=== PATIENT | male | born 1970 | race African-American/Black ===

== ENCOUNTER 2017-08-18 17:56 | Observation (INO) | payer BC, OTHER ==
[~2017-08-18] VITALS: Ht 198.1 cm; Wt 127.7 kg
[2017-08-18 20:22] LABS: BASO % 0.2 %; BASO ABS # 0.02 K/uL (0-0.2); EOS ABS # 0.17 K/uL (0-0.5); HEMATOCRIT 42.6 % (42-52); HEMOGLOBIN 14.7 g/dL (14.0-18.0); IG# 0.01 K/uL (0.00-0.02); LYMPH % 26.3 %; LYMPH ABS # 2.19 K/uL (1.2-3.4); MEAN CORPUSCULAR HEMOGLOBIN 30.4 pg (25-34); MEAN CORPUSCULAR HGB CONC 34.5 g/dl (32-36); MEAN PLATELET VOLUME 10.3 fL (7.4-10.4); MONO % 7.1 %; MONO ABS # 0.59 K/uL (0.11-0.59); NEUT % 64.3 %; NEUT ABS # 5.36 K/uL (1.4-6.5); PLATELET COUNT 172 K/uL (130-400); RED CELL DISTRIBUTION WIDTH CV 13.8 % (11.5-14.5); RED CELL DISTRIBUTION WIDTH SD 41.9 fL (36.4-46.3); WHITE BLOOD COUNT 8.34 K/uL (4.8-10.8)
[2017-08-18 21:26] LABS: ISTAT CREATININE 1.2 mg/dl (0.6-1.3); ISTAT IONIZED CALCIUM 1.18 mmol/l (1.12-1.32); ISTAT POTASSIUM 4.2 mEq/L (3.3-5.0)
[2017-08-18] MEDS ORDERED: OPTIRAY 320 IV PRN (21:30)
[2017-08-18 21:59] LABS: ALBUMIN 3.4 gm/dl (3.4-5.0); CALCIUM 8.8 mg/dl (8.5-10.1); CREATININE 0.98 mg/dl (0.60-1.40); POTASSIUM 4.1 mmol/L (3.5-5.1)
[2017-08-18 22:02] LABS: TOTAL PROTEIN 7.7 gm/dl (6.4-8.2)
--- NOTE | 2017-08-18 22:02 | DIAGNOSTIC IMAGING REPORT ---
CT OF THE ABDOMEN AND PELVIS WITH CONTRAST CLINICAL HISTORY: Right lower quadrant abdominal pain. COMPARISON STUDY: None. TECHNIQUE: Following IV administration of 116 mL of Optiray-320, axial images of the abdomen and pelvis were obtained from the lung bases to the proximal femurs. Images were reviewed in the axial, sagittal, and coronal planes. IV contrast was administered without complication. A dose lowering technique was utilized adhering to the principles of ALARA. CT DOSE: 832.27 mGy.cm FINDINGS: The liver, spleen, adrenal glands, left kidney and pancreas are normal. An 8 mm right renal lesion is too small to characterize but may contain fat and likely reflects a tiny angiomyolipoma. This is likely benign. There is no hydronephrosis. There is no biliary or pancreatic ductal dilatation. No abdominal or pelvic lymphadenopathy is present. The appendix is dilated, measuring 1.3 cm in caliber. There is submucosal fat deposition within the appendix as well as multiple small and large bowel loops which suggests chronic inflammation. There is mild periappendiceal infiltration. There is no free air or abscess. The appendix extends inferiorly from the base of the cecum. No suspicious skeletal lesions are identified. A small fat-containing umbilical hernia is present. IMPRESSION: Findings consistent with acute appendicitis. No free air or abscess. Submucosal fat deposition within the appendix suggests chronic inflammation however mild periappendiceal infiltration is indicative of acute appendicitis. Electronically signed by: Jose Tse M.D. 08/18/2017 10:01 PM Dictated Date/Time: 08/18/2017 9:54 PM
[2017-08-18] MEDS ORDERED: CEFOXITIN 2000MG/60 ML D5W IV STA (22:08)
--- NOTE | 2017-08-18 22:15 | EMERGENCY ROOM VISIT NOTE ---
History First contact with patient: 19:13 Chief Complaint: ABDOMINAL PAIN Stated Complaint: STOMACH PAIN Nursing Triage Summary: pt reports RLQ abdominal pain X 3 days to PCP today sent in for eval and CT pt denies NVD History of Present Illness Patient is a healthy 46-year-old male who presents to emergency department from his primary care doctor's office for evaluation of right lower quadrant abdominal pain 3 days. Patient reports that he had a "food poisoning illness "about a week and half ago. He reports roughly 24 hours of nausea, vomiting and diarrhea, which self resolved. He reports that he was beginning to feel back to his baseline, when he developed right lower quadrant pain about 3 days ago. He states the pain is constant, deep and aching, and rates his discomfort a 5/10. He denies any radiation of the pain. He tried taking Pepto-Bismol last evening for discomfort. He notes increased pain last evening, then states the pain tapered off, then returned today and was worse. He was seen by his primary care provider and referred to the emergency department for possible appendicitis. He has been eating normally, denies nausea, vomiting or diarrhea. No fever or chills. No urinary symptoms. He denies melena, hematochezia or hematemesis. Review of Systems Review of systems as per HPI. All other systems reviewed were negative. 10 systems reviewed. Past Medical/Surgical History Medical Problems: (1) Asthma Surgical Problems: (1) History of vasectomy Electronic medical records are reviewed and summarized as above/below. See Problem List. Social History Smoking Status: Never Smoker Marital Status: Housing Status: lives with family Occupation Status: employed Current/Historical Medications Miscellaneous Medications None (Patient States No Home Meds) Physical Exam Vital Signs Date Time Temp Pulse Resp B/P (MAP) Pulse Ox O2 Delivery O2 Flow Rate FiO2 08/18/17 21:16 67 18 126/85 96 Room Air 08/18/17 18:05 36.6 67 20 129/81 98 Room Air Physical Exam CONSTITUTIONAL: Patient is a pleasant, with ill-appearing 46-year-old - [place] male who is awake and alert and in no acute distress. He is a notoriously exam room without discomfort. EYES: Pupils equal, round, reactive to light and accommodation. EOMs intact without nystagmus. Sclera are anicteric. ENT: Tympanic membranes intact, with normal landmarks. External canals are clear. Oral and nasopharynx are clear. Mucous membranes are moist, no lesions , tongue and gums appear normal. CARDIOVASCULAR: Regular rate and rhythm, with normal S1 and S2, no murmur or gallop or rub is heard. No carotid bruits auscultated. No JVD. Peripheral pulses easily palpable. RESPIRATORY: Breath sounds equal and clear to auscultation without wheezes, rales, or rhonchi heard. Full and equal chest expansion without accessory muscle use or retractions. ABDOMEN: Bowel sounds are present. Abdomen is soft, nondistended, mildly tender to percussion in the suprapubic and right lower quadrants, markedly tender to deep palpation in the right lower quadrant with guarding. No rebound or referred rebound tenderness. No CVA tenderness. INTEGUMENTARY: No lesions or rash, normal skin turgor. LYMPH: No lymphadenopathy. Medical Decision & Procedures ER Provider Diagnostic Interpretation: CT OF THE ABDOMEN AND PELVIS WITH CONTRAST CLINICAL HISTORY: Right lower quadrant abdominal pain. COMPARISON STUDY: None. TECHNIQUE: Following IV administration of 116 mL of Optiray-320, axial images of the abdomen and pelvis were obtained from the lung bases to the proximal femurs. Images were reviewed in the axial, sagittal, and coronal planes. IV contrast was administered without complication. A dose lowering technique was utilized adhering to the principles of ALARA. CT DOSE: 832.27 mGy.cm FINDINGS: The liver, spleen, adrenal glands, left kidney and pancreas are normal. An 8 mm right renal lesion is too small to characterize but may contain fat and likely reflects a tiny angiomyolipoma. This is likely benign. There is no hydronephrosis. There is no biliary or pancreatic ductal dilatation. No abdominal or pelvic lymphadenopathy is present. The appendix is dilated, measuring 1.3 cm in caliber. There is submucosal fat deposition within the appendix as well as multiple small and large bowel loops which suggests chronic inflammation. There is mild periappendiceal infiltration. There is no free air or abscess. The appendix extends inferiorly from the base of the cecum. No suspicious skeletal lesions are identified. A small fat-containing umbilical hernia is present. IMPRESSION: Findings consistent with acute appendicitis. No free air or abscess. Submucosal fat deposition within the appendix suggests chronic inflammation however mild periappendiceal infiltration is indicative of acute appendicitis. Laboratory Results 08/18/17 20:00 Red Blood Count 4.84, Mean Corpuscular Volume 88.0, Mean Corpuscular Hemoglobin 30.4, Mean Corpuscular Hemoglobin Concent 34.5, Mean Platelet Volume 10.3, Neutrophils (%) (Auto) 64.3, Lymphocytes (%) (Auto) 26.3, Monocytes (%) (Auto) 7.1, Eosinophils (%) (Auto) 2.0, Basophils (%) (Auto) 0.2, Neutrophils # (Auto) 5.36, Lymphocytes # (Auto) 2.19, Monocytes # (Auto) 0.59, Eosinophils # (Auto) 0.17, Basophils # (Auto) 0.02 08/18/17 21:10 Test 08/18/17 20:00 08/18/17 20:05 08/18/17 21:10 08/18/17 21:13 White Blood Count 8.34 K/uL (4.8-10.8) Red Blood Count 4.84 M/uL (4.7-6.1) Hemoglobin 14.7 g/dL (14.0-18.0) Hematocrit 42.6 % (42-52) Mean Corpuscular Volume 88.0 fL (80-100) Mean Corpuscular Hemoglobin 30.4 pg (25-34) Mean Corpuscular Hemoglobin Concent 34.5 g/dl (32-36) Platelet Count 172 K/uL (130-400) Mean Platelet Volume 10.3 fL (7.4-10.4) Neutrophils (%) (Auto) 64.3 % Lymphocytes (%) (Auto) 26.3 % Monocytes (%) (Auto) 7.1 % Eosinophils (%) (Auto) 2.0 % Basophils (%) (Auto) 0.2 % Neutrophils # (Auto) 5.36 K/uL (1.4-6.5) Lymphocytes # (Auto) 2.19 K/uL (1.2-3.4) Monocytes # (Auto) 0.59 K/uL (0.11-0.59) Eosinophils # (Auto) 0.17 K/uL (0-0.5) Basophils # (Auto) 0.02 K/uL (0-0.2) RDW Standard Deviation 41.9 fL (36.4-46.3) RDW Coefficient of Variation 13.8 % (11.5-14.5) Immature Granulocyte % (Auto) 0.1 % Immature Granulocyte # (Auto) 0.01 K/uL (0.00-0.02) Urine Color YELLOW Urine Appearance CLEAR (CLEAR) Urine pH 5.0 (4.5-7.5) Urine Specific Wolverine 1.020 (1.000-1.030) Urine Protein NEG (NEG) Urine Glucose (UA) NEG (NEG) Urine Ketones NEG (NEG) Urine Occult Blood NEG (NEG) Urine Nitrite NEG (NEG) Urine Bilirubin NEG (NEG) Urine Urobilinogen NEG (NEG) Urine Leukocyte Esterase NEG (NEG) Est Creatinine Clear Calc Drug Dose 139.1 ml/min Estimated GFR () 105.2 Estimated GFR (Non- 90.8 BUN/Creatinine Ratio 9.7 (10-20) Calcium Level 8.8 mg/dl (8.5-10.1) Total Bilirubin 0.6 mg/dl (0.2-1) Aspartate Amino Transf (AST/SGOT) 22 U/L (15-37) Alanine Aminotransferase (ALT/SGPT) 36 U/L (12-78) Alkaline Phosphatase 70 U/L (45-117) Total Protein 7.7 gm/dl (6.4-8.2) Albumin 3.4 gm/dl (3.4-5.0) Globulin 4.3 gm/dl (2.5-4.0) Albumin/Globulin Ratio 0.8 (0.9-2) Bedside Hemoglobin 14.3 g/dl (14.0-18.0) Bedside Hematocrit 42 % (42-52) Bedside Sodium 141 mEq/L (135-144) Bedside Potassium 4.2 mEq/L (3.3-5.0) Bedside Chloride 99 mEq/L (101-112) Bedside Total CO2 28 mEq/l (24-31) Anion Gap 19.0 mmol/L (16-25) Bedside Blood Urea Nitrogen 8 mg/dl (7-18) Bedside Creatinine 1.2 mg/dl (0.6-1.3) Bedside Glucose (other) 97 mg/dl (70-99) Bedside Ionized Calcium (Layla) 1.18 mmol/l (1.12-1.32) ED Course The patient was seen and evaluated as above. Old records were reviewed. He was referred to the emergency department from his primary care doctor's office for CT scan as they were concerned regarding appendicitis given the right lower quadrant pain 3 days. IV lock was initiated. CBC with differential, CMP and urinalysis were collected. Patient was made NPO (last PO was [address] scan of the abdomen and pelvis with IV contrast was ordered. Laboratory studies noted a normal white count at 8300, no left shift or bandemia. Electrolytes are without abnormality. Renal function is normal. LFTs are not elevated. CT scan of the abdomen pelvis with IV contrast is consistent with acute appendicitis. There is no evidence for perforation or abscess. CT scan findings were reviewed with the patient. Consultation was placed with Dr. Zafar from general surgery. Patient was given Mefoxin 2 g IV in anticipation for surgery. Differential diagnoses include gastroenteritis, pancreatitis, cholelithiasis, cholecystitis, appendicitis, mesenteric adenitis, pyelonephritis, urinary tract infection, renal colic, diverticulitis, shingles, bowel obstruction, among others. Patient was reviewed with attending physician. Medical Decision See ED Course. Medication Reconcilliation Current Medication List: was personally reviewed by in Blood Pressure Screening Patient's blood pressure: Normal blood pressure Blood pressure disposition: Did not require urgent referral Impression Primary Impression: Appendicitis Departure Information Dispostion Being Evaluated By Surgeon Referrals No Doctor, Assigned (PCP) Patient Instructions [facility]
[2017-08-18] MEDS ORDERED: BISM262S7 PO (22:22)
[2017-08-18] MEDS ORDERED: JUICE PLUS PO (22:23)
--- NOTE | 2017-08-18 22:23 | EMERGENCY ROOM VISIT NOTE ---
ED Visit Note First contact with patient: 19:13 The patient was seen and examined with Mirian Red PA-C. I agree with the history, physical and findings. Please see the note for disposition and details. Patient has acute appendicitis. General surgery consulted for further management.
--- NOTE | 2017-08-18 22:48 | Medical Consult ---
Consultation Date of Consultation: Aug 18, 2017. Attending Physician: Reason for Consultation: Acute Appendicitis History of Present Illness Patient presented to the ED with a 2 day history of RLQ pain. States he started to really notice it last night, but tried to tough it out. Rates the pain as a 4 /10 and denies any other areas of pain. Denies associated nausea or vomiting. Denies recent illness. Patient has been moving his bowels and urinating without trouble. PSHx significant for vasectomy. Denies other past surgeries. Reports no history of cardiac or pulmonary problems. Denies use of blood thinning or anticoagulant medications. States he last ate today at lunch today without nausea. Patient works as a school principle in town. Past Medical/Surgical History Medical Problems: (1) Appendicitis Status: Acute (2) Asthma Status: Chronic Social History Smoking Status: Never Smoker Marital Status: Housing Status: lives with family Occupation Status: employed Allergies Coded Allergies: No Known Allergies (Unverified , 07/11/11) Current Inpatient Medications Current Inpatient Medications Medications (Trade) Dose Ordered Sig/Erica Route Start Time Stop Time Status Last Admin Dose Admin Ioversol (Optiray 320) 111 ml UD PRN IV 08/18/17 21:30 08/22/17 21:29 Review of Systems Constitutional: No fever, No chills, No sweats Respiratory: No shortness of breath Cardiovascular: No chest pain Abdomen: + pain (RLQ), No nausea, No vomiting, No diarrhea, No constipation Genitourinary - Male: No dysuria Hematologic / Lymphatic: No abnormal bleeding/bruising Integumentary: No rash, No color change Physical Exam Date Time Temp Pulse Resp B/P (MAP) Pulse Ox O2 Delivery O2 Flow Rate FiO2 08/18/17 21:16 67 18 126/85 96 Room Air 08/18/17 18:05 36.6 67 20 129/81 98 Room Air Patient sitting at bedside, comfortable. Reports he has family with him but they are out of the room at this time. General Appearance: WD/WN, no apparent distress Head: normocephalic, atraumatic Eyes: normal inspection ENT: hearing grossly normal Neck: trachea midline Respiratory/Chest: lungs clear, normal breath sounds, no respiratory distress, no accessory muscle use Cardiovascular: regular rate, rhythm, no gallop, no murmur Abdomen/GI: normal bowel sounds, soft, no organomegaly, no pulsatile mass, + tenderness (RLQ) Neurologic/Psych: alert, normal mood/affect, oriented x 3 Skin: normal color, warm/dry, no rash Laboratory Results Last 24 Hours Test 08/18/17 20:00 08/18/17 20:05 08/18/17 21:10 08/18/17 21:13 White Blood Count 8.34 K/uL Red Blood Count 4.84 M/uL Hemoglobin 14.7 g/dL Hematocrit 42.6 % Mean Corpuscular Volume 88.0 fL Mean Corpuscular Hemoglobin 30.4 pg Mean Corpuscular Hemoglobin Concent 34.5 g/dl Platelet Count 172 K/uL Mean Platelet Volume 10.3 fL Neutrophils (%) (Auto) 64.3 % Lymphocytes (%) (Auto) 26.3 % Monocytes (%) (Auto) 7.1 % Eosinophils (%) (Auto) 2.0 % Basophils (%) (Auto) 0.2 % Neutrophils # (Auto) 5.36 K/uL Lymphocytes # (Auto) 2.19 K/uL Monocytes # (Auto) 0.59 K/uL Eosinophils # (Auto) 0.17 K/uL Basophils # (Auto) 0.02 K/uL RDW Standard Deviation 41.9 fL RDW Coefficient of Variation 13.8 % Immature Granulocyte % (Auto) 0.1 % Immature Granulocyte # (Auto) 0.01 K/uL Urine Color YELLOW Urine Appearance CLEAR Urine pH 5.0 Urine Specific Ransom 1.020 Urine Protein NEG Urine Glucose (UA) NEG Urine Ketones NEG Urine Occult Blood NEG Urine Nitrite NEG Urine Bilirubin NEG Urine Urobilinogen NEG Urine Leukocyte Esterase NEG Sodium Level 137 mmol/L Potassium Level 4.1 mmol/L Chloride Level 103 mmol/L Carbon Dioxide Level 28 mmol/L Anion Gap 6.0 mmol/L 19.0 mmol/L Blood Urea Nitrogen 10 mg/dl Creatinine 0.98 mg/dl Est Creatinine Clear Calc Drug Dose 139.1 ml/min Estimated GFR () 105.2 Estimated GFR (Non- 90.8 BUN/Creatinine Ratio 9.7 Random Glucose 90 mg/dl Calcium Level 8.8 mg/dl Total Bilirubin 0.6 mg/dl Aspartate Amino Transf (AST/SGOT) 22 U/L Alanine Aminotransferase (ALT/SGPT) 36 U/L Alkaline Phosphatase 70 U/L Total Protein 7.7 gm/dl Albumin 3.4 gm/dl Globulin 4.3 gm/dl Albumin/Globulin Ratio 0.8 Bedside Hemoglobin 14.3 g/dl Bedside Hematocrit 42 % Bedside Sodium 141 mEq/L Bedside Potassium 4.2 mEq/L Bedside Chloride 99 mEq/L Bedside Total CO2 28 mEq/l Bedside Blood Urea Nitrogen 8 mg/dl Bedside Creatinine 1.2 mg/dl Bedside Glucose (other) 97 mg/dl Bedside Ionized Calcium (Layla) 1.18 mmol/l Assessment & Plan Acute appendicitis. No free air or abscess. Patient will be scheduled for laparoscopic appendectomy with Dr. Andrade huitron. NPO, IV fluids, SCDs, IV Zofran PRN for nausea 2g IV cefoxitin administered. OR notified. Risks, benefits, alternatives to the procedure were discussed with the patient - all questions were answered. Findings discussed with Dr. Zafar and he was in to see the patient and sign consent forms. Please contact with questions or concerns.
[2017-08-18] MEDS ORDERED: BUPIVACAINE/EPINEPHRINE 0.5% MPF 1:200,000 30 ML VIAL ONE (22:50)
[2017-08-18] MEDS ORDERED: FENTANYL CITRATE INJ 50 MCG/1 ML 2 ML VIAL ONE (22:55)
[2017-08-18 23:10] VITALS: O2SAT 97
[2017-08-18] MEDS ORDERED: HYDROmorphone INJ 2 MG/ML SYR/VIAL ONE (23:54)
[2017-08-19] VITALS (8 sets, daily range): BP systolic 96–117; BP diastolic 59–74; PULSE 50–66; TEMP 36.4–36.5; O2SAT 91–97; Ht 198.1 cm; Wt 127.7 kg
[2017-08-19] MEDS ORDERED: KETOROLAC TROMETHAMINE 30 MG/ML VIAL ONE (00:23)
[2017-08-19] MEDS ORDERED: NEOSTIGMINE METHYLSULFATE 5 MG/5 ML SYR ONE (00:23)
[2017-08-19] MEDS ORDERED: GLYCOPYRROLATE INJ 0.2 MG/ML VIAL ONE (00:23)
[2017-08-19] MEDS ORDERED: ONDANSETRON INJ 2 MG/ML 2 ML VIAL ONE (00:23)
[2017-08-19] MEDS ORDERED: DEXAMETHASONE SOD INJ 4 MG/ML VIAL ONE (00:23)
[2017-08-19] MEDS ORDERED: EpHEDrine SULFATE 50MG/5ML SYR ONE (00:23)
--- NOTE | 2017-08-19 00:23 | [facility] Operative Report ---
Operative Report Operative Date Aug 19, 2017. Pre-Operative Diagnosis Acute appendicitis Post-Operative Diagnosis Acute appendicitis Procedure(s) Performed Laparoscopic appendentomy Surgeon Dr. Christian Zafar Smoke Jumper Surgeon(s) Sidney Phipps PA-c Estimated Blood Loss 5 ml Findings acute appendicitis Specimens appendix Anesthesia get Complication(s) None Disposition Recovery Room / PACU Description of Procedure After informed consent was obtained the patient was taken the operating room and placed in a supine position. The left arm was tucked and a Daniel catheter was placed. The abdomen was shaved and sterilely prepped and draped in usual fashion. An infraumbilical incision was made with an 11 blade scalpel and carried down through the soft tissue using electrocautery. Anterior fascia was opened using electrocautery and 2 #0 Vicryl stay sutures were placed. Peritoneum was elevated with hemostats and incised under direct vision using a Metzenbaum scissor. A finger sweep was performed and a 12 mm Nichols trocar was placed. The abdomen was insufflated to 20 mmHg. The laparoscope was inserted and the abdomen examined 360. A suprapubic 5 mm port and a left lower quadrant 12 mm port were placed under direct vision. There was some free fluid in the pelvis which we suctioned and irrigated. There was an obvious acute appendicitis in the right lower quadrant. I was able to easily grab it and elevate it. I was able to use a CHRIS Brown cartridge stapler to transect the mesentery of the appendix. I then used a 60 mm purple cartridge to transect the appendix at its base with the cecum. Staple lines were intact and there was adequate hemostasis. I thoroughly irrigated the right lower quadrant as well as the pelvis until all irrigant was clear. I ran the small bowel backwards for several feet all of which appeared normal. Peritoneal surfaces small and large bowel stomach spleen and liver etc. all appeared grossly normal. We placed the appendix into an Endo Catch bag and removed from the camera port site. All the trochars were removed and the abdomen was desufflated. The fascia the camera port was closed using 0 Vicryl figure-of- eight fashion. All wounds were irrigated and closed using 4-0 Monocryl. Marcaine was injected around for postoperative analgesia and skin glue used as dressings the patient was awaken extubated and transferred recovery in stable condition My physician's camp assistant was present throughout the entire case. He helped prepped the patient as well as ran the camera and helped gain exposure for trocar placement. He also helped with wound closure and dressing placement at the end of the case I attest to the content of the Intraoperative Record and any orders documented therein. Any exceptions are noted below.
[2017-08-19] MEDS ORDERED: HYDROmorphone INJ 0.5 MG/0.5 ML SYR IV PRN (00:45)
[2017-08-19] MEDS ORDERED: ONDANSETRON INJ 2 MG/ML 2 ML VIAL IV PRN ×2 (00:45→01:00)
[2017-08-19] MEDS ORDERED: ACETAMINOPHEN IV 100 ML IV PRN (00:45)
[2017-08-19] MEDS ORDERED: HYDROCODONE/ACETAMIN 5/325MG TAB PO PRN ×2 (00:45)
[2017-08-19] MEDS ORDERED: HYDROmorphone INJ 1 MG/ML SYR IV PRN (00:45)
[2017-08-19] MEDS ORDERED: PROMETHAZINE HCL INJ 6.25 MG in SODIUM CHLORIDE 0.9% 50ML 50 ML IV PRN (01:00)
[2017-08-19] MEDS ORDERED: ATROPINE SULFATE 0.1 MG/ML 5ML SYR IV PRN (01:00)
[2017-08-19] MEDS ORDERED: FENTANYL CITRATE INJ 50 MCG/1 ML 2 ML VIAL IV PRN (01:00)
[2017-08-19] MEDS ORDERED: EpHEDrine SULFATE INJ 50 MG/ML AMP IV PRN (01:00)
[2017-08-19] MEDS ORDERED: IV FLUIDS COMPLETED PRN (01:15)
--- NOTE | 2017-08-19 01:16 | Anesthesiology Progress Note ---
Anesthesia Post Op Note Date & Time Aug 19, 2017 at 01:16 Vital Signs Pain Intensity: 0 Vital Signs Past 12 Hours Date Time Temp Pulse Resp B/P (MAP) Pulse Ox O2 Delivery O2 Flow Rate FiO2 08/19/17 01:12 36.4 59 12 133/59 92 Room Air 08/19/17 01:07 35.8 49 15 140/80 98 Nasal Cannula 2 08/19/17 01:02 35.8 51 14 145/74 94 Nasal Cannula 2 08/19/17 00:58 35.5 54 15 147/77 97 Nasal Cannula 2 08/19/17 00:53 55 12 142/76 96 Nasal Cannula 4 08/19/17 00:48 36.0 68 12 149/81 97 Room Air 08/18/17 23:10 57 18 122/85 97 Room Air 08/18/17 21:16 67 18 126/85 96 Room Air 08/18/17 18:05 36.6 67 20 129/81 98 Room Air Notes Mental Status: alert / awake / arousable, participated in evaluation Pt Amnestic to Procedure: Yes Nausea / Vomiting: adequately controlled Pain: adequately controlled Airway Patency, RR, SpO2: stable & adequate BP & HR: stable & adequate Hydration State: stable & adequate Anesthetic Complications: no major complications apparent
--- NOTE | 2017-08-19 01:35 | NUR ---
OBS: ARRIVED POST OP LAP APPY AT THIS TIME. ORIENTED TO ROOM/CALL [facility] BUT UNABLE TO SIGN CODE WORD/FALL AGREEMENT FORMS AT THIS TIME DUE TO DROWSINESS. VSS. 3 LAP SITES DERMABOND CDI. HYPOACTIVE BS. SEE EMR FOR COMPLETE ADM ASSESSMENT. CALL [facility] IN REACH. PRIMARY RN TO CONTINUE PT CARE.
[2017-08-19] MEDS: LACTATED RINGER'S 1000ML 1,000 ML IV SCH ×2 (02:11→12:30)
[2017-08-19] MEDS ORDERED: INFLUENZA VIRUS QUAD VACCINE 0.5 ML SYR IM. ONE (03:00)
[2017-08-19] MEDS ORDERED: PNEUMOCOCCAL ADMINISTRATION CHARGE ONE (03:00)
[2017-08-19] MEDS ORDERED: PNEUMOCOCCAL POLYSACCHARIDES 25 MCG/0.5 ML VIAL/SYR IM. ONE (03:00)
[2017-08-19] MEDS ORDERED: INFLUENZA ADMINISTRATION CHARGE ONE (03:00)
--- NOTE | 2017-08-19 04:00 | NUR ---
OBS: Pt alert and oriented x4 but still drowsy. Tolerating a clear liquid diet. Pt not OOB yet this shift, will attempt to get out in AM. IVF infusing per MD orders. VS WNL. BS hypo, no gas. Has not voided yet. x3 lap sites to abdomen, clean, dry, and intact. No c/o pain. Discharge plans uncertain. Will continue to monitor.
[2017-08-19] MEDS ORDERED: CEFOXITIN IV 2,000 MG in DEXTROSE 5% 50ML 50 ML IV SCH (06:00)
--- NOTE | 2017-08-19 08:00 | NUR ---
OBS: Patient alert and oriented x4, denies pain at this time. IVF infusing LR @100cc/hr.
[2017-08-19] MEDS ORDERED: HYDR-5688 PO (08:22)
--- NOTE | 2017-08-19 08:24 | Discharge Instructions ---
Discharge Instructions Date of Service Aug 19, 2017. Admission Reason for Admission: Appendicitis Discharge Discharge Diagnosis / Problem: laparoscopic appendectomy Discharge Goals Goal(s): Decrease discomfort Activity Recommendations Activity Limitations: as noted below Lifting Limitations: no more than 10 pounds Shower/Bathe: no limitations Driving or Machine Use: resume 3 days after discharge . Instructions / Follow-Up Instructions / Follow-Up Dr. Zafar in 1-2 weeks, call [phone] to schedule or for any questions, [address] Current Hospital Diet Patient's current hospital diet: Clear Liquid Diet Discharge Diet Recommended Diet: Regular Diet Procedures Procedures Performed: Laparoscopic appendentomy Pending Studies Studies pending at discharge: yes List of pending studies: pathology Medical Emergencies . Who to Call and When: Medical Emergencies: If at any time you feel your situation is an emergency, please call 911 immediately. . Non-Emergent Contact Non-Emergency issues call your: Surgeon Call Non-Emergent contact if: you have a fever, temperature is above 101.5, your pain is not controlled, wound has increased redness, you have any medication questions . "Provider Documentation" section prepared by Amrit Diamond. . VTE Core Measure Inpt VTE Proph given/why not?: SCD's [place] Drug Monitoring Program Search Results: no issues identified
--- NOTE | 2017-08-19 09:18 | Surgery Progress Note ---
Surgery Progress Note Date of Service Aug 19, 2017. Subjective Post OP Day: 1 + feeling well, + diet Objective Vital Signs: Date Time Temp Pulse Resp B/P (MAP) Pulse Ox O2 Delivery O2 Flow Rate FiO2 08/19/17 07:35 36.4 66 16 96/59 (71) 94 Room Air 08/19/17 04:35 36.4 57 12 102/69 (80) 97 Room Air 08/19/17 03:35 36.4 63 12 99/65 (76) 95 Room Air 08/19/17 02:35 36.4 52 12 109/67 (81) 93 Room Air 08/19/17 02:05 36.5 52 12 117/72 (87) 94 Room Air 08/19/17 01:56 Room Air 08/19/17 01:35 Room Air 08/19/17 01:35 Room Air 08/19/17 01:35 50 14 117/74 (88) 91 Room Air 08/19/17 01:29 36.5 50 14 145/87 95 Room Air 08/19/17 01:22 65 12 152/69 90 Room Air 08/19/17 01:17 36.4 64 12 132/77 91 Room Air 08/19/17 01:12 36.4 59 12 133/59 92 Room Air 08/19/17 01:07 35.8 49 15 140/80 98 Nasal Cannula 2 08/19/17 01:02 35.8 51 14 145/74 94 Nasal Cannula 2 08/19/17 00:58 35.5 54 15 147/77 97 Nasal Cannula 2 08/19/17 00:53 55 12 142/76 96 Nasal Cannula 4 08/19/17 00:48 36.0 68 12 149/81 97 Room Air 08/18/17 23:10 57 18 122/85 97 Room Air 08/18/17 21:16 67 18 126/85 96 Room Air 08/18/17 18:05 36.6 67 20 129/81 98 Room Air Abdomen: soft, + pertinent finding (expected tenderness. ) Laboratory Results: Results Past 24 Hours Test 08/18/17 20:00 08/18/17 20:05 08/18/17 21:10 08/18/17 21:13 Range/Units White Blood Count 8.34 4.8-10.8 K/uL Red Blood Count 4.84 4.7-6.1 M/uL Hemoglobin 14.7 14.0-18.0 g/dL Hematocrit 42.6 42-52 % Mean Corpuscular Volume 88.0 80-100 fL Mean Corpuscular Hemoglobin 30.4 25-34 pg Mean Corpuscular Hemoglobin Concent 34.5 32-36 g/dl Platelet Count 172 130-400 K/uL Mean Platelet Volume 10.3 7.4-10.4 fL Neutrophils (%) (Auto) 64.3 % Lymphocytes (%) (Auto) 26.3 % Monocytes (%) (Auto) 7.1 % Eosinophils (%) (Auto) 2.0 % Basophils (%) (Auto) 0.2 % Neutrophils # (Auto) 5.36 1.4-6.5 K/uL Lymphocytes # (Auto) 2.19 1.2-3.4 K/uL Monocytes # (Auto) 0.59 0.11-0.59 K/uL Eosinophils # (Auto) 0.17 0-0.5 K/uL Basophils # (Auto) 0.02 0-0.2 K/uL RDW Standard Deviation 41.9 36.4-46.3 fL RDW Coefficient of Variation 13.8 11.5-14.5 % Immature Granulocyte % (Auto) 0.1 % Immature Granulocyte # (Auto) 0.01 0.00-0.02 K/uL Urine Color YELLOW Urine Appearance CLEAR CLEAR Urine pH 5.0 4.5-7.5 Urine Specific [place] 1.020 1.000-1.030 Urine Protein NEG NEG Urine Glucose (UA) NEG NEG Urine Ketones NEG NEG Urine Occult Blood NEG NEG Urine Nitrite NEG NEG Urine Bilirubin NEG NEG Urine Urobilinogen NEG NEG Urine Leukocyte Esterase NEG NEG Sodium Level 137 136-145 mmol/L Potassium Level 4.1 3.5-5.1 mmol/L Chloride Level 103 98-107 mmol/L Carbon Dioxide Level 28 21-32 mmol/L Anion Gap 6.0 19.0 16-25 mmol/L Blood Urea Nitrogen 10 7-18 mg/dl Creatinine 0.98 0.60-1.40 mg/dl Est Creatinine Clear Calc Drug Dose 139.1 ml/min Estimated GFR () 105.2 Estimated GFR (Non- 90.8 BUN/Creatinine Ratio 9.7 10-20 Random Glucose 90 70-99 mg/dl Calcium Level 8.8 8.5-10.1 mg/dl Total Bilirubin 0.6 0.2-1 mg/dl Aspartate Amino Transf (AST/SGOT) 22 15-37 U/L Alanine Aminotransferase (ALT/SGPT) 36 12-78 U/L Alkaline Phosphatase 70 45-117 U/L Total Protein 7.7 6.4-8.2 gm/dl Albumin 3.4 3.4-5.0 gm/dl Globulin 4.3 2.5-4.0 gm/dl Albumin/Globulin Ratio 0.8 0.9-2 Bedside Hemoglobin 14.3 14.0-18.0 g/dl Bedside Hematocrit 42 42-52 % Bedside Sodium 141 135-144 mEq/L Bedside Potassium 4.2 3.3-5.0 mEq/L Bedside Chloride 99 101-112 mEq/L Bedside Total CO2 28 24-31 mEq/l Bedside Blood Urea Nitrogen 8 7-18 mg/dl Bedside Creatinine 1.2 0.6-1.3 mg/dl Bedside Glucose (other) 97 70-99 mg/dl Bedside Ionized Calcium ([place]) 1.18 1.12-1.32 mmol/l Assessment & Plan 08/19/17 doing well pod #1. no issues ina diet. will advance. if tolerates lunch will d/c this afternoon. instructions given.
--- NOTE | 2017-08-27 10:57 | Discharge Summary ---
Discharge Summary Date of Service Aug 27, 2017. Admission Date/Reason Aug 19, 2017 at 00:47 Appendicitis. Discharge Date/Disposition Aug 19, 2017 Home Diagnosis Principal Diagnosis: appendicitis Procedure(s) Performed [facility] Medication Reconciliation [place] 5/325 as needed for pain. Admission Physical Exam As per Admitting History & Physical. Hospital Course This is a 46-year-old male who presented to the emergency room on 08/18/2017 with complaints of abdominal pain progressing to the right lower quadrant. Workup included lab work as well as a CT scan which confirmed acute appendicitis. The evening of his admission the patient was taken to the operating room urgently and a laparoscopic appendectomy was performed. The patient was admitted for an overnight stay for observation and symptom control. By postoperative day #1 the patient was doing well and his pain was controlled. He was able tolerate a diet and deemed stable for discharge. He was given written and verbal instructions. He was to follow-up with myself in the office within a 2 week period. Discharge Instructions Please refer to the electronic Patient Visit Report (Discharge Instructions) for additional information.
== END 2017-08-19 13:30 | disposition home or self-care (01) ==
LOC: C.EDB 17:57 → C.3E 08-19 00:47 → ENRESERV 08-19 01:26
PROVIDERS: ADMIT Surgery; ATTEND Surgery
DX: K35.80 Unspecified acute appendicitis (principal); J45.909 Unspecified asthma, uncomplicated; Z98.52 Vasectomy status; Z68.32 Body mass index [BMI] 32.0-32.9, adult; E66.9 Obesity, unspecified